=== PATIENT | male | born 1995 | race Caucasian/White ===

== ENCOUNTER 2017-06-26 04:24 | Emergency (ER) | payer OTHER, MEDICAID | END 2017-06-26 04:35 | disposition left against medical advice (07) | LOC: FTE 04:24 | DX: R30.0 Dysuria (principal); L02.215 Cutaneous abscess of perineum | CPT/HCPCS: 99284; Z7502 ==

== ENCOUNTER 2017-11-05 02:38 | Emergency (ER) | payer SELFPAY, OTHER | END 2017-11-05 02:54 | disposition left against medical advice (07) | LOC: FTE 02:38 | DX: Z53.21 Procedure and treatment not carried out due to patient leaving prior to being seen by health care provider (principal) ==

== ENCOUNTER 2018-11-17 23:20 | Emergency (ER) | payer SELFPAY ==
[2018-11-18] MEDS: CYCLOBENZAPRINE 10 MG TAB PO (01:24)
[2018-11-18] MEDS: KETOROLAC 30 MG INJ IM (01:24)
== END 2018-11-18 02:04 | disposition home or self-care (01) ==
LOC: FTE 23:20
DX: M94.0 Chondrocostal junction syndrome [Tietze] (principal)
CPT/HCPCS: 93005; 96372; 99284-25